=== PATIENT | male | born 1955 | race Caucasian/White ===

== ENCOUNTER 2017-01-01 09:06 | Outpatient (CLI) | payer SELFPAY ==
[2017-01-01 13:11] LABS: Cardiac Risk 4.2 (Less than 4.5)
[2017-01-01 16:20] LABS: Hemoglobin A1c 7.3 % (4.0-6.0)
== END 2017-01-01 09:07 ==
LOC: NAVSJIPCSP 09:06
PROVIDERS: ATTEND Internal Medicine
DX: E11.9 Type 2 diabetes mellitus without complications (principal); E78.5 Hyperlipidemia, unspecified
CPT/HCPCS: 36415; 80061; 83036